=== PATIENT | female | born 1970 | race African-American/Black ===

== ENCOUNTER 2017-07-24 22:35 | Emergency (ER) | payer OTHER ==
[~2017-07-24] VITALS: Ht 157.5 cm; Wt 88.5 kg
[2017-07-24 23:27] LABS: BASOPHIL (%) 0.5 % (0-1); EOSINOPHIL (%) 1.1 % (0-5); EOSINOPHIL COUNT 0.1 K/uL (0-0.3); HEMATOCRIT 40.8 % (36.0-46.0); HEMOGLOBIN 13.3 G/DL (11.9-15.5); IMMATURE GRANULOCYTE (%) 0.2 % (0.0-0.7); LYMPHOCYTE (%) 37.6 % (15-42); LYMPHOCYTE COUNT 3.1 K/uL (1.0-2.8); MCH 26.7 PG (29.0-34.0); MCHC 32.6 G/DL (30.0-36.0); MCV 81.9 FL (83-99); MONOCYTE (%) 9.3 % (3-12); MONOCYTE COUNT 0.8 K/uL (0-0.8); NEUTROPHIL (%) 51.3 % (45-76); NEUTROPHIL COUNT 4.2 K/uL (1.8-6.4); PLATELET COUNT 321 K/uL (156-360); RBC DIS.WIDTH-CV 14.1 % (11.8-14.6); RBC DIS.WIDTH-SD 41.7 % (39-53); RED BLOOD COUNT 4.98 M/uL (3.80-5.20); WHITE BLOOD COUNT 8.2 K/uL (4.1-10.2)
[2017-07-24 23:50] LABS: ALBUMIN 4.2 G/DL (3.2-4.8); CHLORIDE 103 MEQ/L (99-109); DIRECT BILIRUBIN 0.1 mg/dL (0.0-0.3); POTASSIUM 3.5 MEQ/L (3.7-5.4); SODIUM 139 MEQ/L (136-147); TOTAL BILIRUBIN 0.3 MG/DL (0.0-1.0)
[2017-07-24 23:55] LABS: ALKALINE PHOSPHATASE 112 IU/L (3-129); ALT (GPT) 11 IU/L (3-49); AST (GOT) 12 IU/L (2-34); CREATININE 0.6 MG/DL (0.6-1.3); GFR ESTIMATE (CALCULATED) > 59 mL/min/; GLUCOSE 99 mg/dL (70-99); TOTAL PROTEIN 6.9 G/DL (6.4-8.3); UREA NITROGEN (BUN) 12 mg/dL (9-23)
[2017-07-24 23:56] VITALS: BP 132/74
[2017-07-25 00:25] LABS: QUANTITATIVE HCG < 4.0 MIU/ML
== END 2017-07-25 00:04 | disposition home or self-care (01) ==
LOC: EME 22:35
PROVIDERS: Physician Assistant
PROC: 3E0234Z Introduction of Serum, Toxoid and Vaccine into Muscle, Percutaneous Approach (ICD-10-PCS; principal; 2017-07-24)
DX: S61.031A Puncture wound without foreign body of right thumb without damage to nail, initial encounter (principal); W46.0XXA Contact with hypodermic needle, initial encounter; Y99.0 Civilian activity done for income or pay; Z23 Encounter for immunization
CPT/HCPCS: 80048; 80076; 84702; 85025; 99281; 99283